=== PATIENT | male | born 1975 | race African-American/Black ===

== ENCOUNTER 2016-10-30 18:47 | Emergency (ER) | payer OTHER ==
[2016-10-30 18:59] VITALS: BP 121/74
[2016-10-30] MEDS ORDERED: KETOROLAC TROMETHAMINE 0.45% 4 DROP/0.4 ML DROPERETTE OS ONE (19:57)
[2016-10-30] MEDS ORDERED: TETRACAINE HCL 0.5% OPH SOLN 2 ML OS ONE (19:58)
--- NOTE | 2016-10-30 19:58 | ER Document Report ---
HPI - HPI Patient complains to provider of: something got in left eye Onset: Other - Around 6 PM Onset/Duration: Sudden Quality of pain: Other - Pricking, like something is in it. Pain Level: 5 Context: 41-year-old male with following wood and hit some nails. During that time he felt some dust go into his left eye. Washed it out. He still feels like something is in it. Non-contact lens wearer. Associated Symptoms: None Exacerbated by: Denies Relieved by: Denies Similar symptoms previously: No Recently seen / treated by doctor: No - ROS ROS below otherwise negative: Yes Systems Reviewed and Negative: Yes All other systems reviewed and negative - DERM Skin Color: Normal, [place] Past Medical History - General Information source: Patient - Social History Smoking Status: Unknown if Ever Smoked Frequency of alcohol use: None Drug Abuse: None Lives with: Family Family History: Reviewed & Not Pertinent Pulmonary Medical History: Reports: Hx Bronchitis Renal/ Medical History: Denies: Hx Peritoneal Dialysis Past Surgical History: Reports: Hx Oral Surgery - Immunizations Immunizations up to date: Yes Hx Diphtheria, Pertussis, Tetanus Vaccination: Yes Vertical Provider Document - CONSTITUTIONAL Agree With Documented VS: Yes Exam Limitations: No Limitations General Appearance: Mild Distress - INFECTION CONTROL TRAVEL OUTSIDE OF THE [place] IN LAST 30 DAYS: No - HEENT HEENT: Conjuctival Injection - mild left eye. visual acuity 20/30 left , 20/25 right. no FB with lid eversion exam twice, anterior chamber clear, no fluorescein uptake., PERRLA - NECK Neck: Supple - RESPIRATORY O2 Sat by Pulse Oximetry: 98 - NEURO Level of Consciousness: Awake, Alert, Appropriate - DERM Integumentary: Warm, Dry, No Rash Course - Re-evaluation Re-evalutation: 10/30/16 20:55 Dr. Rodarte evaluated for foreign body of the thigh with Tegaderm over the closed and ultrasound. Again there was no foreign body in the eye. - Vital Signs Vital signs: Temp Pulse Resp BP Pulse Ox 98.1 F 66 18 121/74 98 10/30/16 18:57 10/30/16 18:57 10/30/16 18:57 10/30/16 18:57 10/30/16 18:57 Discharge - Discharge Clinical Impression: Irritant left eye conjunctivitis Condition: Good Disposition: HOME, SELF-CARE Instructions: Ketorolac Tromethamine Eye Drops ([facility]), Topical Erythromycin ([facility] ), Conjunctivitis ([facility]) Additional Instructions: do not rub eye erythromycin 1/2 ribbon four times per day for 3 days to er if increased pain, drainage, fever acular eye drop : 1 drop in left eye every 6 hours see the opthamologist if the symptoms persists tomorrow Please complete the patient satisfaction survey if you get one, and return it.. If you do not receive a survey, then you can go to the [facility] website, [email or web address] and place your comments about your very good care. Thank you very much. It was a pleasure being your medical provider today. Forms: Return to Work Referrals: DULCE FUCHS MD [ACTIVE STAFF] - Follow up as needed
[2016-10-30] MEDS ORDERED: ERYTHROMYCIN 0.5% OPH OINT 1 GM UNIT DOSE OS ONE (20:54)
[2016-10-30] MEDS ORDERED: OXYCODONE-ACETAMINOPHEN 5-325 MG TABLET PO ONE (20:55)
== END 2016-10-30 21:14 | disposition home or self-care (01) ==
LOC: ER 18:47
DX: H10.12 Acute atopic conjunctivitis, left eye (principal)
CPT/HCPCS: 99283

== ENCOUNTER 2018-07-14 10:57 | Emergency (ER) | payer OTHER ==
--- NOTE | 2018-07-14 13:03 | ER Document Report ---
ED Neck/Back Problem - General Chief Complaint: Neck Pain >24hrs old Stated Complaint: NECK PAIN Time Seen by Provider: 07/14/18 12:22 Mode of Arrival: Ambulatory Information source: Patient Notes: 43-year-old male presents to ED for complaint of stiff neck times 4 days. He states he has not had any trauma to the area just thought that he slept worse but the pain kept getting worse so he decided he better come to the emergency room and be evaluated. He stated that he took Flexeril in the morning with no relief. He states his neck is very different he was worried that he had some kind of infection or brain problem because he was having a stiff neck. He denies having any injuries. But he states he did have a nosebleed several weeks ago. He denies injuring it or doing any unusual lifting or pulling or pushing. He states he is out of work at this time and actually is not lifting at all right now. He stated he thinks he needs a CT or something of his head and neck. TRAVEL OUTSIDE OF THE [place] IN LAST 30 DAYS: No - HPI Patient complains to provider of: Pain, Neck. No: Injury Onset: Other - 4 days Onset: Gradual Timing: Waxing and waning Quality of pain: Other - Tight and stiff Severity: Moderate Pain Level: 4 Context: Other - States that first he thought he just slept wrong but that has progressed no injuries has full range of motion of his neck rotates left and right and flexes and extends with no difficulty Recent injury: No Associated symptoms: Other - Neck pain worse on the right. denies: Fever, Incontinence, Motor loss, Numbness/tingling, Radiation to arm, Radiation to chest, Radiation to leg, Sensory loss, Unable to urinate, Lower back pain, Upper back pain Exacerbated by: Movement of neck Relieved by: Nothing Similar symptoms previously: Yes Recently seen / treated by doctor: No - Related Data Allergies/Adverse Reactions: No Known Allergies Allergy (Verified 06/12/15 10:39) Past Medical History - General Information source: Patient - Social History Smoking Status: Current Every Day Smoker Cigarette use (# per day): Yes Chew tobacco use (# tins/day): No Smoking Education Provided: Yes - 4 minutes Frequency of alcohol use: Occasional Drug Abuse: None Lives with: Family Family History: Reviewed & Not Pertinent Patient has suicidal ideation: No Patient has homicidal ideation: No - Past Medical History Cardiac Medical History: Reports: None Pulmonary Medical History: Reports: Hx Bronchitis EENT Medical History: Reports: None Neurological Medical History: Reports: None Endocrine Medical History: Reports: None Renal/ Medical History: Reports: None Malignancy Medical History: Reports None GI Medical History: Reports: None Musculoskeletal Medical History: Reports Hx Musculoskeletal Deformity Skin Medical History: Reports None Psychiatric Medical History: Reports: None Traumatic Medical History: Reports: None Infectious Medical History: Reports: None Past Surgical History: Reports: Hx Oral Surgery - Immunizations Immunizations up to date: Yes Hx Diphtheria, Pertussis, Tetanus Vaccination: Yes Review of Systems - Review of Systems Constitutional: No symptoms reported EENT: No symptoms reported Cardiovascular: No symptoms reported Respiratory: No symptoms reported Gastrointestinal: No symptoms reported Genitourinary: No symptoms reported Male Genitourinary: No symptoms reported Musculoskeletal: Muscle pain, Muscle stiffness, Neck pain. denies: Back pain Skin: No symptoms reported Hematologic/Lymphatic: No symptoms reported Neurological/Psychological: No symptoms reported -: Yes All other systems reviewed and negative Physical Exam - Vital signs Vitals: Temp Pulse Resp BP Pulse Ox 98.0 F 59 L 16 127/86 H 99 07/14/18 11:03 07/14/18 11:03 07/14/18 11:03 07/14/18 11:03 07/14/18 11:03 Interpretation: Normal - General General appearance: Appears well, Alert - HEENT Head: Normocephalic, Atraumatic Eyes: Normal Pupils: PERRL Visual khoury normal: Yes Ears: Normal External canal: Normal Tympanic membrane: Normal Sinus: Normal Nasal: Normal Mouth/Lips: Normal Mucous membranes: Normal Pharynx: Normal Neck: Normal - Respiratory Respiratory status: No respiratory distress Chest status: Nontender Breath sounds: Normal Chest palpation: Normal - Cardiovascular Rhythm: Regular Heart sounds: Normal auscultation Murmur: No - Abdominal Inspection: Normal Distension: No distension Bowel sounds: Normal Tenderness: Nontender Organomegaly: No organomegaly - Back Back: Normal, Tender - Right neck pain but no point tenderness, no vertebral tenderness, has full range of motion flexion extension rotation to the left and to the right is able to have 5/5 strength with flexion extension and rotation to left and right. No: Vertebra tenderness - Extremities General upper extremity: Normal inspection, Nontender, Normal color, Normal ROM, Normal temperature General lower extremity: Normal inspection, Nontender, Normal color, Normal ROM, Normal temperature, Normal weight bearing. No: Yasmin's sign - Neurological Neuro grossly intact: Yes Cognition: Normal Orientation: AAOx4 Joyce Coma Scale Eye Opening: Spontaneous [place] Coma Scale Verbal: Oriented Joyce Coma Scale Motor: Obeys Commands Joyce Coma Scale Total: 15 Speech: Normal Cranial nerves: Normal Cerebellar coordination: Normal Motor strength normal: LUE, RUE, LLE, RLE Additional motor exam normals: Equal bit setter Babinski reflex: Normal (flexor plantar) Sensory: Normal Biceps - Reflex grade: 2 = Normal Triceps - Reflex grade: 2 = Normal Brachioradialis - Reflex grade: 2 = Normal Knee - Reflex grade: 2 = Normal Ankle - Reflex grade: 2 = Normal - Psychological Associated symptoms: Normal affect, Normal mood - Skin Skin Temperature: Warm Skin Moisture: Dry Skin Color: Normal Course - Vital Signs Vital signs: Temp Pulse Resp BP Pulse Ox 98.2 F 64 16 132/84 H 98 07/14/18 13:08 07/14/18 13:08 07/14/18 13:08 07/14/18 13:08 07/14/18 13:08 Discharge - Discharge Clinical Impression: Neck pain Condition: Stable Disposition: HOME, SELF-CARE Instructions: Family Physicians / Practices Additional Instructions: You were seen today for stiff neck and neck pain times 4 days. You have denied any traumas to the area. You state when you sleep it makes the pain much worse. You state you have been under a lot of stress at your job. you state you have been taken Flexeril and diclofenac with no relief. You state you do not have any long-term history of high blood pressure but you are under a lot of stress. HEADACHE: The physician does not feel that the headache you are experiencing has a serious underlying cause. Most headaches are due to emotional stress, with resultant muscle tension (tension headache). Occasionally, headaches are secondary to changes in the blood vessels of the scalp (vascular headache and migraine headache). Sometimes, a headache is the first symptom of another d eveloping illness, such as a viral infection. You have no evidence of stroke, bleeding, meningitis, or other serious cause of your headache. The treatment of headaches varies with the severity and cause of the pain. Not all headaches need pain shots. In fact, there is evidence that using narcotics for headaches may make them worse in the long run. The physician will determine the therapy that's in your best interest. If you develop a fever, if the headache is different from any you've previously experienced, or if the headache progressively worsens, then call your physician at once or go to the emergency room. Continue taking your diclofenac and your Flexeril as prescribed by your provider. Ice Packs Apply ice packs frequently against the painful area. Many different schedules are recommended, such as "20 minutes on, 20 minutes off" or "one hour ice, two hours rest." If you need to work, you may need to go longer between ice treatments. You should plan to have the area ice packed AT LEAST one fourth of the time. The ice should be applied over the wrap, tape, or splint, or over a layer of cloth -- not directly against the skin. Some ice bags have a built-in cloth and can be put directly on the skin. Warm Packs After approximately two days, apply gentle heat (such as a heating pad or hot water bottle) for about 20 to 30 minutes about every two hours -- at least four times daily. Warmth and elevation will help you make a more rapid recovery, and will ease the pain considerably. Do not use HOT heat, and never apply heat for longer than 30 minutes. The continuous heat can invisibly damage skin and muscles -- even when no burn is seen on the surface. Damaged muscles can make you MORE sore. Exercise Program for the Shoulder Since the shoulder moves in so many directions, the joint attachment is weak. Muscles provide most of the stability to the shoulder. You must exercise your shoulder to prevent painful instability or stiffening. PASSIVE - These may be begun within a few days of the injury. While standing, lean forward, allowing the arm to hang down towards the floor. Move the arm in small circles while slowly twisting your chest towards and away from the hanging arm. Do this for one minute. ACTIVE - These may be performed when the doctor gives permission. Begin with the arms at the sides. Raise the arms forward (shoulder's width apart) until they reach shoulder level. Then slowly swing both arms back until they are aiming straight out away from each other. Then bring them forward again, and finally, lower them to your sides. Repeat 20 to 30 times. As you improve, put weights in your hands for the exercise. Start with one pound, and work up to 10 pounds. Never use more than is comfortable. Athletes may work up to 30 pounds. FOLLOW-UP CARE: If you have been referred to a physician for follow-up care, call the physicians office for an appointment as you were instructed or within the next two days. If you experience worsening or a significant change in your symptoms, notify the physician immediately or return to the Emergency Department at any time for re-evaluation. Forms: Smoking Cessation Education, Return to Work, Elevated Blood Pressure
[2018-07-14 13:10] VITALS: BP 132/84
== END 2018-07-14 13:08 | disposition home or self-care (01) ==
LOC: ER 10:57
DX: M54.2 Cervicalgia (principal); M43.6 Torticollis; F17.210 Nicotine dependence, cigarettes, uncomplicated; Z71.6 Tobacco abuse counseling
CPT/HCPCS: 99283; 99406

== ENCOUNTER 2019-03-08 09:55 | Emergency (ER) | payer OTHER ==
--- NOTE | 2019-03-08 11:20 | ER Document Report ---
Entered by REG VELARDE SCRIBE 03/08/19 1103 Acting as scribe for:DARRELL SINGH MD ED General - General Chief Complaint: Bloody Stools Stated Complaint: BLOOD IN STOOL Time Seen by Provider: 03/08/19 10:52 Primary Care Provider: RUBEN GARZA MD [Primary Care Provider] - Follow up in 3-5 days Mode of Arrival: Ambulatory Information source: Patient Notes: Patient is a 44-year-old male who presents to the emergency department today with complaints of rectal bleeding. Patient states he has noticed blood in his stool and when he wipes intermittently for the last month or so. Patient has a history of hemorrhoids, stating that about a year ago he had a thrombosed hemorrhoid incised. Patient also mentions that he has had a cough for the last few weeks. TRAVEL OUTSIDE OF THE [place] IN LAST 30 DAYS: No - Related Data Allergies/Adverse Reactions: No Known Allergies Allergy (Verified 06/12/15 10:39) Past Medical History - General Information source: Patient - Social History Smoking Status: Current Every Day Smoker Cigarette use (# per day): Yes - 1 ppd Chew tobacco use (# tins/day): No Smoking Education Provided: No Frequency of alcohol use: None Drug Abuse: None Lives with: Family Family History: Reviewed & Not Pertinent Patient has suicidal ideation: No Patient has homicidal ideation: No Pulmonary Medical History: Reports: Hx Bronchitis Musculoskeletal Medical History: Reports Hx Musculoskeletal Deformity Past Surgical History: Reports: Hx Oral Surgery - Immunizations Immunizations up to date: Yes Hx Diphtheria, Pertussis, Tetanus Vaccination: Yes Review of Systems - Review of Systems Constitutional: No symptoms reported EENT: No symptoms reported Cardiovascular: No symptoms reported Respiratory: See HPI, Cough Gastrointestinal: See HPI, Blood streaked bowels, Rectal bleeding Genitourinary: No symptoms reported Male Genitourinary: No symptoms reported Musculoskeletal: No symptoms reported Skin: No symptoms reported Hematologic/Lymphatic: No symptoms reported Neurological/Psychological: No symptoms reported -: Yes All other systems reviewed and negative Physical Exam - Vital signs Vitals: Temp Pulse Resp BP Pulse Ox 97.5 F 52 L 18 120/79 99 03/08/19 09:59 03/08/19 09:59 03/08/19 09:59 03/08/19 09:59 03/08/19 09:59 - Notes Notes: Physical Exam: General: Alert, appears well. HEENT: Normocephalic. Atraumatic. PERRL. Extraocular movements intact. Oropharynx clear. Neck: Supple. Non-tender. Respiratory: No respiratory distress. Clear and equal breath sounds bilaterally. Cardiovascular: Regular rate and rhythm. Abdominal: Normal Inspection. Non-tender. No distension. Normal Bowel Sounds. Rectal: Rectal exam shows some skin tags. No hemorrhoids. No fissures. No obvious source of bleeding. Digital rectal exam does not show any hemorrhoids. Stool is brown in color but tests positive for Hemoccult. Back: No gross abnormalities. Extremities: Moves all four extremities. Upper extremities: Normal inspection. Normal ROM. Lower extremities: Normal inspection. No edema. Normal ROM. Neurological: Normal cognition. AAOx4. Normal speech. Psychological: Normal affect. Normal Mood. Skin: Warm. Dry. Normal color. Course - Re-evaluation Re-evalutation: 03/08/19 11:20 Stool Hemoccult was trace positive. - Vital Signs Vital signs: Temp Pulse Resp BP Pulse Ox 98 F 64 16 124/70 98 03/08/19 11:33 03/08/19 11:33 03/08/19 11:33 03/08/19 11:33 03/08/19 11:33 Discharge - Discharge Clinical Impression: Rectal bleeding Upper respiratory tract infection Qualifiers: URI type: unspecified URI Qualified Code(s): J06.9 - Acute upper respiratory infection, unspecified Condition: Stable Disposition: HOME, SELF-CARE Additional Instructions: Rectal Bleeding, Unclear Cause No definite cause has been found for the rectal bleeding you have experienced. Among the possible causes are internal or external hemorrhoids (internal hemorrhoids can't be felt on the outside), an anal fissure (a crack at the anal ring), infections or inflammatory diseases of the colon, tumors or polyps, or diverticula (diverticula are outpouchings from the colon wall). To establish a cause for your bleeding (or at least make certain there is no serious problem such as a tumor), further evaluation will be necessary. This may include special X-rays, or passage of a scope up into the colon. Be sure to keep your follow-up appointment. Should you develop brisk bleeding, abdominal pain, fever, lightheadedness, or fever, call the doctor or return at once. Follow-up with your primary care provider this week for referral to a drafting supervisor for colonoscopy. Referrals: RUBEN GARZA MD [Primary Care Provider] - Follow up in 3-5 days Scribe Attestation: 03/08/19 11:23 I personally performed the services described in the documentation, reviewed and edited the documentation which was dictated to the scribe in my presence, and it accurately records my words and actions. I personally performed the services described in the documentation, reviewed and edited the documentation which was dictated to the scribe in my presence, and it accurately records my words and actions.
[2019-03-08 11:33] VITALS: BP 124/70
== END 2019-03-08 11:34 | disposition home or self-care (01) ==
LOC: ER 09:55
DX: J06.9 Acute upper respiratory infection, unspecified (principal); K62.5 Hemorrhage of anus and rectum; R19.5 Other fecal abnormalities; R05 Cough; Z98.890 Other specified postprocedural states; F17.210 Nicotine dependence, cigarettes, uncomplicated
CPT/HCPCS: 99283